=== PATIENT | female | born 1955 | race Caucasian/White ===

== ENCOUNTER → 2019-09-20 10:53 | Outpatient (CLI) | payer MEDICARE, SELFPAY ==
--- NOTE | ~2019-09-20 | XR_ITS ---
XR chest 2V DATE: 09/20/2019 11:15 INDICATION: Cough for 2 weeks. Shortness of breath. History of COPD. TECHNIQUE: 2 views COMPARISON: 04/29/2016 portable AP chest FINDINGS: No reproducible infiltrate is evident. Right cardiac margin is not well-defined on the fron ophelia view likely due to cardiophrenic fat pad, with no corresponding evidence for an infiltrate on the lateral view. Heart size is within normal range. There is thoracic and abdominal aortic calcification. Degenerative spurring of the thoracic spine. IMPRESSION: No active cardiopulmonary disease Reviewed, dictated and finalized at location B.
== END ==
PROVIDERS: PCP Physician Assistant; Visit Provider Physician Assistant
DX: J06.9 Acute upper respiratory infection, unspecified (principal); R05 Cough; R06.02 Shortness of breath; J44.9 Chronic obstructive pulmonary disease, unspecified
CPT/HCPCS: 71046